=== PATIENT | female | born 1980 | race Caucasian/White ===

== ENCOUNTER → 2022-03-22 | Outpatient (CLI) | payer OTHER ==
--- NOTE | 2022-03-25 12:41 | MM ---
Reason for Exam: Screening (asymptomatic). Patient History: Menarche at age 18. First Full-Term at age 33. Late child-bearing (after 30). Patient has history of breast feeding. Patient used Hormonal Contraceptives for 5 years. 10/2006, US biopsy breast VAD RT on the Right side. Last menstrual period: 03/22/2022 Risk Values: Sheri 5 year model risk: 1.1%. NCI Lifetime model risk: 15.1%. Prior Study Comparison: No prior studies available for comparison. Tissue Density: The breast tissue is heterogeneously dense. This may lower the sensitivity of mammography. Findings: Analyzed By CAD. There are 2 mammotome biopsy clips in the right breast. Focal asymmetry in the upper-outer aspect right breast. Overall Assessment: Incomplete: need additional imaging evaluation, BI-RAD 0 Management: Special View Mammogram of the right breast. Additional spot views and true lateral view right breast. 3-D imaging preferred. Obtained old outside mammogram if has been performed. Electronically signed and approved by: Gurpreet Saxena M.D.
== END | disposition home or self-care (01) ==
LOC: RADMAMWWP 16:58
PROVIDERS: ATTEND Obstetrics & Gynecology Obstetrics
DX: Z12.31 Encounter for screening mammogram for malignant neoplasm of breast (principal)
CPT/HCPCS: 77067

== ENCOUNTER → 2022-04-04 | Outpatient (CLI) | payer OTHER ==
--- NOTE | 2022-04-04 14:14 | MM ---
Reason for Exam: Additional evaluation requested from abnormal screening. Last screening mammogram was performed less than 1 month ago. Patient History: Menarche at age 18. First Full-Term at age 33. Late child-bearing (after 32). Patient has history of breast feeding. Patient used Hormonal Contraceptives for 5 years. 10/2006, US biopsy breast VAD RT on the Right side. Risk Values: Sheri 5 year model risk: 1.1%. NCI Lifetime model risk: 15.1%. Prior Study Comparison: 03/22/2022 Bilateral MG screening mammo w CAD, [facility]. Tissue Density: Right: The breast tissue is heterogeneously dense. This may lower the sensitivity of mammography. Findings: Analyzed By CAD. Heterogenous and extremely dense right upper outer quadrant fibroglandular tissue with surgical clips in place. Evaluation limited given density of tissue. For complete evaluation, ultrasound is recommended. Overall Assessment: Incomplete: need additional imaging evaluation, BI-RAD 0 Management: Diagnostic Breast Ultrasound of the right breast. Upper outer quadrant ultrasound for complete evaluation of dense fibroglandular tissue on mammography. A clinical breast exam by your physician is recommended on an annual basis and results should be correlated with mammographic findings. This exam should not preclude additional follow-up of suspicious palpable abnormalities. Results were given to the patient verbally at the time of exam. Electronically signed and approved by: Evangelist Klein DO
--- NOTE | 2022-04-04 14:28 | USB ---
Reason for Exam: Additional evaluation requested from abnormal screening. Patient History: Menarche at age 18. First Full-Term at age 33. Late child-bearing (after 30). Patient has history of breast feeding. Patient used Hormonal Contraceptives for 5 years. 10/2006, US biopsy breast VAD RT on the Right side. Risk Values: Sheri 5 year model risk: 1.1%. NCI Lifetime model risk: 15.1%. Prior Study Comparison: 03/22/2022 Bilateral MG screening mammo w CAD, [facility]. Findings: The upper outer quadrant of the right breast, the axilla of the right breast and the retroareolar of the right breast were scanned. Targeted ultrasound of the right breast upper outer quadrant, axillary and retroareolar regions demonstrated no evidence of suspicious mass or cystic structure.. Overall Assessment: Negative, BI-RAD 1 Management: Screening Mammogram of both breasts in 1 year. A clinical breast exam by your physician is recommended on an annual basis and results should be correlated with mammographic findings. This exam should not preclude additional follow-up of suspicious palpable abnormalities. Results were given to the patient verbally at the time of exam. Electronically signed and approved by: Evangelist Klein DO
== END | disposition home or self-care (01) ==
LOC: RADMAMWWP 13:39
PROVIDERS: ATTEND Obstetrics & Gynecology Obstetrics
DX: R92.8 Other abnormal and inconclusive findings on diagnostic imaging of breast (principal)
CPT/HCPCS: 77065

== ENCOUNTER → 2022-09-02 | Outpatient (CLI) | payer OTHER ==
[2022-09-02 15:17] LABS: Basophils # (A) 0.05 X 10*3/uL (0.00-0.10); Basophils % (A) 0.7 %; Eosinophils # (A) 0.14 X 10*3/uL (0.04-0.35); Eosinophils % (A) 1.9 %; Immature Grans, Automated 0.5 %; Lymphocytes # (A) 2.43 X 10*3/uL (0.90-5.00); Lymphocytes % (A) 32.4 %; MCH 30.1 pg (27.0-32.0); MCHC 34.1 g/dL (32.0-37.0); MCV 88.2 fL (80.0-97.0); Mean Platelet Volume 10.3 fL (9.5-12.2); Monocytes # (A) 0.43 X 10*3/uL (0.20-1.00); Monocytes % (A) 5.7 %; NRBC Per 100 WBC 0 /100 WBCS (0.0-0.0); Neutrophils # (A) 4.42 X 10*3/uL (1.80-7.70); Neutrophils % (A) 58.8 %; Platelet Count 355 X 10*3/uL (140-440); RBC 4.65 X 10*6/uL (4.10-5.20); RDW 11.8 % (11.5-14.5); WBC 7.51 X 10*3/uL (4.50-10.00)
[2022-09-02 16:24] LABS: ALT 22 U/L (8-44); AST 19 U/L (13-35); African American GFR (CKD) 101.6 (60.0-200.0); Albumin 4.6 g/dL (3.8-4.9); Albumin/Globulin Ratio 1.93 (1.60-3.17); Alkaline Phosphatase 80 U/L (41-126); BUN/Creat Ratio 12.71 Ratio (12.00-20.00); Blood Urea Nitrogen 10.6 mg/dL (9.0-27.0); Calcium 9.5 mg/dL (8.7-10.3); Carbon Dioxide 27.1 mmol/L (20.0-27.5); Chloride 105 mmol/L (96-109); Chol/HDL Ratio 2.79 Ratio; Globulin 2.4 g/dL (1.6-3.3); Glucose 87 mg/dL (70-110); LDL Cholesterol,Calculated 107.5 mg/dL (0.0-131.0); Magnesium 1.9 mg/dL (1.5-2.4); Non-African American GFR(CKD) 87.7 (60.0-200.0); Phosphorus 3.2 mg/dL (2.4-5.1); Potassium 4.7 mmol/L (3.5-5.5); Sodium 139 mmol/L (135-145); VLDL Calculation 14.52 mg/dL (5.00-40.00)
== END | disposition home or self-care (01) ==
LOC: LABWHC1 08:38
PROVIDERS: ATTEND Nurse Practitioner Family
DX: R00.2 Palpitations (principal); Z82.49 Family history of ischemic heart disease and other diseases of the circulatory system
CPT/HCPCS: 36415; 80053; 80061; 83735; 84100; 84443; 85025; 86376

== ENCOUNTER 2024-07-19 17:41 | Emergency (ER) | payer OTHER ==
--- NOTE | 2024-07-19 19:15 | ED ---
Lower Extremity Injury HPI - General Chief Complaint: Extremity Injury, Lower Stated Complaint: R ankle injury Time Seen by Provider: 07/19/24 17:55 Source: patient, RN notes reviewed Mode of arrival: ambulatory Limitations: no limitations - History of Present Illness Initial Comments: 44-year-old female no reported medical history presents emergency department complaint of right ankle pain. Patient that she was at about house with her children when she got out of the house and twisted her right ankle. She denies any other loss consciousness time the injury. Denies other injuries at the time of the fall. Patient states that she has not attempted to put weight on her ankle since the injury. Currently states the pain is a 3 out of 10 and is to lerable with ice applied. Denies previous surgeries of the ankle. - Related Data Allergies Allergy/AdvReac Type Severity Reaction Status Date / Time No Known Allergies Allergy Verified 07/19/24 17:51 Review of Systems ROS Statement: Those systems with pertinent positive or pertinent negative responses have been documented in the HPI. ROS Other: All systems not noted in ROS Statement are negative. Past Medical History Past Medical History: No Reported History Past Surgical History: Section Smoking Status: Former smoker Past Alcohol Use History: None Reported Past Drug Use History: Marijuana General Exam Limitations: no limitations General appearance: alert, in no apparent distress Neck exam: Present: normal inspection. Absent: tenderness, meningismus, lymphadenopathy Respiratory exam: Present: normal lung sounds bilaterally. Absent: respiratory distress, wheezes, rales, rhonchi, stridor Cardiovascular Exam: Present: regular rate, normal rhythm, normal heart sounds. Absent: systolic murmur, diastolic murmur, rubs, gallop, clicks GI/Abdominal exam: Present: soft, normal bowel sounds. Absent: distended, tenderness, guarding, rebound, rigid Right Ankle exam: Present: tenderness, swelling, ecchymosis. Absent: full ROM, abrasion, deformity Neurovascular tendon exam: Absent: no vascular compromise, pulse deficit Back exam: Present: normal inspection Neurological exam: Present: alert, oriented X3, CN II-XII intact Course Vital Signs 07/19/24 07/19/24 17:43 20:19 Temperature 97.9 F 98.4 F Pulse Rate 116 H 84 Respiratory 17 20 Rate Blood Pressure 124/80 104/71 O2 Sat by Pulse 98 98 Oximetry Medical Decision Making - Medical Decision Making Was pt. sent in by a medical professional or institution (JORDYN Hawk, SALES INSPECTOR, urgent c are, hospital, or penitentiary...) When possible be specific @ -No Did you speak to anyone other than the patient for history (EMS, parent, family, police, friend...)? What history was obtained from this source @ -No Did you review nursing and triage notes (agree or disagree)? Why? @ -I reviewed and agree with nursing and triage notes Were old charts reviewed (outside hosp., previous admission, EMS record, old EKG, old radiological studies, urgent care reports/EKG's, penitentiary records)? Report findings @ -No old charts were reviewed Differential Diagnosis (chest pain, altered mental status, abdominal pain women, abdominal pain men, vaginal bleeding, weakness, fever, dyspnea, syncope, headache, dizziness, GI bleed, back pain, seizure, CVA, palpatations, mental health, musculoskeletal)? @ -Differential Musculoskeletal Muscular strain, contusion, ligament sprain, fracture, arthritis, septic arthritis, bursitis, cellulitis, muscle spasm, nerve compression, DVT, arterial occlusion, herpes zoster, electrolyte abnormality, tumor.... This is not meant to be in all inclusive list EKG interpreted by me (3pts min.). @ -None X-rays interpreted by me (1pt min.). @ -X-ray of the right ankle completed with no acute fractures evident with soft tissue swelling of the lateral malleolus CT interpreted by me (1pt min.). @ -None done U/S interpreted by me (1pt. min.). @ -None done What testing was considered but not performed or refused? (CT, X-rays, U/S, labs)? Why? @ -None What meds were considered but not given or refused? Why? @ -None Did you discuss the management of the patient with other professionals (professionals i.e. JORDYN Hawk, SALES INSPECTOR, lab, RT, psych nurse, social work assistant, autocad draftsman, teacher, wildlife conservation officer, shoe caser)? Give summary @ -No Was smoking cessation discussed for >3mins.? @ -No Was critical care preformed (if so, how long)? @ -No Were there social determinants of health that impacted care today? How? (Homelessness, low income, unemployed, alcoholism, drug addiction, transportation, low edu. Level, literacy, decrease access to med. care, custodial, rehab)? @ -No Was there de-escalation of care discussed even if they declined (Discuss DNR or withdrawal of care, Hospice)? DNR status @ -No What co-morbidities impacted this encounter? (DM, HTN, Smoking, COPD, CAD, Cancer, CVA, ARF, Chemo, Hep., AIDS, mental health diagnosis, sleep apnea, morbid obesity)? @ -None Was patient admitted / discharged? Hospital course, mention meds given and route, prescriptions, significant lab abnormalities, going to OR and other pertinent info. @ -Discharge. 44 female presenting with right ankle pain. There is noted ecchymosis and edema over the lateral malleolus. Patient is neurovascularly intact. She was offered pain medication was declined. X-ray is unremarkable. She is provided with an Doc wrap and supportive treatment discussed at bedside. Case discussed with Dr. Ford Undiagnosed new problem with uncertain prognosis? @ -No Drug Therapy requiring intensive monitoring for toxicity (Heparin, Nitro, Insulin, Cardizem)? @ -No Were any procedures done? @ -No Diagnosis/symptom? @ -ankle sprain Acute, or Chronic, or Acute on Chronic? @ -acute Uncomplicated (without systemic symptoms) or Complicated (systemic symptoms)? @ -uncomplicated Side effects of treatment? @ -No Exacerbation, Progression, or Severe Exacerbation? @ -No Poses a threat to life or bodily function? How? (Chest pain, [place], [place], pneumonia, PE, COPD, DKA, ARF, appy, cholecystitis, CVA, Diverticulitis, Homicidal, Suicidal, threat to staff... and all critical care pts) @ -No Disposition Clinical Impression: Ankle sprain Disposition: HOME SELF-CARE Condition: Good Instructions (If sedation given, give patient instructions): Ankle Sprain (ED) Additional Instructions: Please return to the Emergency Department if symptoms worsen or any other concerns. Is patient prescribed a controlled substance at d/c from ED?: No Referrals: None,Stated [Primary Care Provider] - 1-2 days Time of Disposition: 19:54
--- NOTE | 2024-07-19 19:50 | XR ---
EXAMINATION TYPE: XR ankle complete RT DATE OF EXAM: 07/19/2024 7:26 PM COMPARISON: None. CLINICAL INDICATION: Female, 44 years old with history of fall, swelling, pain, pain TECHNIQUE: 3 view(s) obtained. FINDINGS: Ankle mortise is intact. No acute fracture or dislocation is evident. There is soft tissue swelling over the lateral malleolus. Some soft tissue swelling is along the ante rior ankle as well. Follow up exams can be performed 7-10 days from acute trauma for continued pain. If there is concern for soft tissue injury, MRI could be performed. IMPRESSION: 1. Soft tissue swelling lateral malleolus. 2. No displaced acute fractures evident. [facility], , 07/19/2024 7:48 PM
[2024-07-19 20:23] VITALS: BP 104/71; PULSE 84; RESP 20; TEMP 98.4
== END 2024-07-19 20:28 | disposition home or self-care (01) ==
LOC: EC 17:41
DX: S93.401A Sprain of unspecified ligament of right ankle, initial encounter (principal); Z87.891 Personal history of nicotine dependence; X50.1XXA Overexertion from prolonged static or awkward postures, initial encounter
CPT/HCPCS: 99283

== ENCOUNTER → 2024-09-12 | Outpatient (CLI) | payer OTHER ==
--- NOTE | 2024-09-14 09:14 | MR ---
EXAMINATION TYPE: MR ankle RT wo con DATE OF EXAM: 09/12/2024 1:42 PM COMPARISON: 07/19/2024. CLINICAL INDICATION: Female, 44 years old with history of S93.491D SPRAIN OF OTHER LIGAMENT OF RIGHT ANKLE,; [facility], RT ankle pain, swelling and limited movement since July 19, 2024, Twisted ankle TECHNIQUE: Multi planar, multi sequence imaging was performed. No Gadolinium given. IV Contrast: mL (None.) FINDINGS: LIGAMENTS AND TENDONS: High T2 signal is seen around the fibularis longus tendon in the foot. There i s increased PD signal within the posterior talofibular ligament as well as seen within the calcaneofi bular ligament. The anterior talofibular ligament, tibiofibular ligaments, and deltoid ligament are i ntact. The anterior compartment, posterior compartment, lateral compartment, and medial compartment tendons have a normal appearance. The portion of the plantar fascia seen is unremarkable. OSSEOUS STRUCTURES AND CARTILAGE: The talar dome has a normal morphology and signal intensity. The sinus tarsus has a normal signal intensity. The bone marrow signal intensity is within normal limits. IMPRESSION: 1. No evidence for fracture. 2. Low-grade sprain of the posterior talofibular and Calcaneofibular ligaments. 3. No definitive evidence to suggest tendon or ligament injury. 4. Tenosynovitis of the fibula is nondistended and [facility], , 09/14/2024 9:11 AM
== END | disposition home or self-care (01) ==
LOC: RADMRIMAIN 12:23
PROVIDERS: ATTEND Podiatrist
DX: S93.491D Sprain of other ligament of right ankle, subsequent encounter (principal); M65.971 Unspecified synovitis and tenosynovitis, right ankle and foot